=== PATIENT | female | born 1950 | race Caucasian/White ===

== ENCOUNTER 2020-06-29 02:42 | Inpatient (IN) | payer MEDICARE ==
[~2020-06-29] VITALS: Ht 170.2 cm; Wt 116.4 kg
[2020-06-29 03:18] LABS: BASO # 0.1 x10^3/uL (0.0-0.2); BASO % 1 % (0-3); EOS # 0.1 x10^3/uL (0.0-0.7); EOS % 1 % (0-3); HEMATOCRIT 33.5 % (36.0-47.0); HEMOGLOBIN 11.1 g/dL (12.0-15.5); LYMPH % 8 % (24-48); MEAN CORPUSCULAR HEMOGLOBIN 29 pg (25-35); MEAN CORPUSCULAR HGB CONC 33 g/dL (31-37); MEAN CORPUSCULAR VOLUME 89 fL (79-100); MONO # 0.8 x10^3/uL (0.0-1.1); MONO % 7 % (0-9); NEUT # 10.3 x10^3/uL (1.8-7.7); NEUT % 84 % (31-73); PLATELET COUNT 324 x10^3/uL (140-400); RED BLOOD COUNT 3.77 x10^6/uL (3.50-5.40); RED CELL DISTRIBUTION WIDTH 14.8 % (11.5-14.5); WHITE BLOOD COUNT 12.2 x10^3/uL (4.0-11.0)
--- NOTE | 2020-06-29 03:19 | RAD ---
EXAM: CHEST ONE VIEW. HISTORY: Shortness of breath. COMPARISON: 06/15/2004. FINDINGS: A frontal view of the chest is obtained. There are interstitial infiltrates in both bases. A small left pleural effusion is suspected. There i s no pneumothorax. The heart is not enlarged. There are atherosclerotic calcifications of the aorta. IMPRESSION: 1. Findings consistent with mild pulmonary edema versus atypical pneumonia. Electronically signed by: Juan Funes MD (06/29/2020 3:17 AM) [facility]
[2020-06-29 03:28] LABS: CALCIUM 8.7 mg/dL (8.5-10.1); CREATININE 0.8 mg/dL (0.6-1.0); GFR 70.7; POTASSIUM 3.9 mmol/L (3.5-5.1)
[2020-06-29] MEDS ORDERED: methylPREDNISolone SOD SUCC PF 125 MG/2 ML VIAL. IV ONE (03:30)
[2020-06-29 03:34] LABS: ALBUMIN 3.1 g/dL (3.4-5.0); ALBUMIN/GLOBULIN RATIO 0.8 (1.0-1.7); TOTAL BILIRUBIN 0.7 mg/dL (0.2-1.0); TOTAL PROTEIN 6.8 g/dL (6.4-8.2)
--- NOTE | 2020-06-29 04:16 | PHYS DOC ---
Past Medical History Past Medical History: CHF, COPD, High Cholesterol Additional Past Medical Histor: NEUROPATHY Past Surgical History: Other Additional Past Surgical Histo: UNKNOWN Smoking Status: Current Every Day Smoker Alcohol Use: None General Adult EDM: Chief Complaint: SHORTNESS OF BREATH HPI: HPI: Patient is a 70 year old female past medical history of copd hypertension hyperlipidemia presents with a chief complaint of shortness of breath. Patient states shortness of breath is been ongoing for 3 days progressively becoming worse. Patient has associate cough without sputum production. Patient states last 4 days she has had swelling in her lower extremities. She denies any fevers or chills. Patient lives at home. Family called 911. Upon ems arrival patient with oxygens saturations in the 70's on room air. Patient arrived to the ER on a non rebreather with O2 sat of 92%. EMS treated patient with a Duoneb. Review of Systems: Review of Systems: Review of systems: Constitutional symptoms- No fever, no chills. Eyes- No Discharge, No Visual Loss Respiratory symptoms- Positive shortness of breath, No wheezing, No Dyspnea on Exertion Cardiovascular Systems; No chest pain, No Palpitations, No syncope Gastrointestinal symptoms: NO abdominal pain, no nausea, no vomiting or diarrhea. Genitourinary symptoms: No dysuria. Musculoskeletal symptoms: No back pain No extremity pain. NEUROLOGICAL Symptoms: No headache, no generalized weakness; No focal Weakness Heart Score: Risk Factors: Risk Factors: DM, Current or recent (<one month) smoker, HTN, HLP, family history of CAD, obesity. Risk Scores: Score 0 - 3: 2.5% MACE over next 6 weeks - Discharge Home Score 4 - 6: 20.3% MACE over next 6 weeks - Admit for Clinical Observation Score 7 - 10: 72.7% MACE over next 6 weeks - Early Invasive Strategies Current Medications: Current Medications Medications (Trade) Dose Ordered Sig/Roby Start Time Stop Time Status Last Admin Dose Admin Azithromycin 250 ml @ 250 mls/hr 1X ONCE 06/29/20 04:30 06/29/20 05:29 Ceftriaxone Sodium (Rocephin) 1 gm 1X ONCE 06/29/20 04:30 06/29/20 04:31 Furosemide (Lasix) 40 mg 1X ONCE 06/29/20 04:30 06/29/20 04:31 Methylprednisolone Sodium Succinate (SOLU-Medrol 125MG VIAL) 125 mg 1X ONCE 06/29/20 03:30 06/29/20 03:31 DC 06/29/20 03:27 125 MG Allergies: Allergies: Allergies Coded Allergies Type Severity Reaction Last Updated Verified No Known Drug Allergies 06/29/20 No Physical Exam: PE: General: alert, no acute distress. Skin: warm, dry and intact. Head:: Normocephalic, atraumatic. Neck: Trachea midline. Eyes: EOMI, Normal conjunctiva, No drainage CARDIOVASCULAR: Tachycardia RESPIRATORY: Mild respiratory distress tachypneic no wheezing Back: Full range of motion. MUSCULOSKELETAL: Full range of motion of bilateral upper and lower extremities. GASTROINTESTINAL: Abdomen soft without rebound or guarding. NEUROLOGICAL: Alert and noted to person, place and time. No neurological deficits observed Psychiatric: Cooperative. Normal judgment Current Patient Data: Labs: Laboratory Tests Test 06/29/20 03:08 White Blood Count 12.2 x10^3/uL (4.0-11.0) H Red Blood Count 3.77 x10^6/uL (3.50-5.40) Hemoglobin 11.1 g/dL (12.0-15.5) L Hematocrit 33.5 % (36.0-47.0) L Mean Corpuscular Volume 89 fL (79-100) Mean Corpuscular Hemoglobin 29 pg (25-35) Mean Corpuscular Hemoglobin Concent 33 g/dL (31-37) Red Cell Distribution Width 14.8 % (11.5-14.5) H Platelet Count 324 x10^3/uL (140-400) Neutrophils (%) (Auto) 84 % (31-73) H Lymphocytes (%) (Auto) 8 % (24-48) L Monocytes (%) (Auto) 7 % (0-9) Eosinophils (%) (Auto) 1 % (0-3) Basophils (%) (Auto) 1 % (0-3) Neutrophils # (Auto) 10.3 x10^3/uL (1.8-7.7) H Lymphocytes # (Auto) 1.0 x10^3/uL (1.0-4.8) Monocytes # (Auto) 0.8 x10^3/uL (0.0-1.1) Eosinophils # (Auto) 0.1 x10^3/uL (0.0-0.7) Basophils # (Auto) 0.1 x10^3/uL (0.0-0.2) Sodium Level 141 mmol/L (136-145) Potassium Level 3.9 mmol/L (3.5-5.1) Chloride Level 104 mmol/L (98-107) Carbon Dioxide Level 29 mmol/L (21-32) Anion Gap 8 (6-14) Blood Urea Nitrogen 19 mg/dL (7-20) Creatinine 0.8 mg/dL (0.6-1.0) Estimated GFR (Cockcroft-Gault) 70.7 BUN/Creatinine Ratio 24 (6-20) H Glucose Level 171 mg/dL (70-99) H Lactic Acid Level 1.4 mmol/L (0.4-2.0) Calcium Level 8.7 mg/dL (8.5-10.1) Total Bilirubin 0.7 mg/dL (0.2-1.0) Aspartate Amino Transferase (AST) 35 U/L (15-37) Alanine Aminotransferase (ALT) 32 U/L (14-59) Alkaline Phosphatase 105 U/L (46-116) Troponin I Quantitative 0.033 ng/mL (0.000-0.055) TP-Fgb-O-Type Natriuretic Peptide 3872 pg/mL (0-124) H Total Protein 6.8 g/dL (6.4-8.2) Albumin 3.1 g/dL (3.4-5.0) L Albumin/Globulin Ratio 0.8 (1.0-1.7) L Laboratory Tests 06/29/20 03:08 Laboratory Tests 06/29/20 03:08 Vital Signs: Vital Signs Date Time Temp Pulse Resp B/P (MAP) Pulse Ox O2 Delivery O2 Flow Rate FiO2 06/29/20 03:02 98.9 108 24 231/94 (139) 92 NonRebreather Mask 10.0 98.9 EKG: EKG: EKG performed at 025 5 hours heart rate [address] elevation no ST depression no acute ME [] Radiology/Procedures: Radiology/Procedures: [] Impression: There are interstitial infiltrates in both bases. A small left pleural effusion is suspected. There is no pneumothorax. The heart is not enlarged. There are atherosclerotic calcifications of the aorta. IMPRESSION: 1. Findings consistent with mild pulmonary edema versus atypical pneumonia. Course & Med Decision Making: Course & Med Decision Making Pertinent Labs and Imaging studies reviewed. (See chart for details) [] Patient was evaluated for chief complaint. Work-up consisted of laboratory analysis radiologic imaging and EKG. Results reviewed and discussed with len irving. Chest x-ray per radiologist pulmonary edema versus atypical infection. Patient's BNP noted to be greater than 3000. Treatment included solumedrol RocephinZithromax AND Lasix. Patient admitted to the hospitalist for further evaluation and treatment. Gilberto Disclaimer: Gilberto Disclaimer: This electronic medical record was generated, in whole or in part, using a voice recognition dictation system. Departure Departure Impression: Primary Impression: Person under investigation for COVID-19 Additional Impressions: Dyspnea Elevated brain natriuretic peptide (BNP) level CHF (congestive heart failure) Disposition: 09 ADMITTED INPT THIS HOSP Admitting Physician: ADRI Condition: STABLE ELLIOTT YOUNGER I DO Jun 29, 2020 04:16
[2020-06-29] MEDS ORDERED: cefTRIAXone IV Push 1 GM VIAL. IVP ONE (04:30)
[2020-06-29] MEDS ORDERED: FUROSEMIDE 40 MG/4 ML VIAL. IVP ONE (04:30)
[2020-06-29] MEDS ORDERED: AZITHRMYCN 500MG IVPB FOR OMNI 250 ML IV ONE (04:30)
--- NOTE | 2020-06-29 04:35 | EKG ---
[address] [place] [address] Test Date: 2020-06-29 Test Time: 02:55:25 Pat Name: ADRIANA YUAN Department: Room: Gender: F [employer]: : [id number] Requested By: ELLIOTT YOUNGER Order Number: [id number] Reading MD: Measurements Intervals Elberta Rate: 103 P: 54 NV: 176 QRS: 17 QRSD: 90 T: 110 QT: 350 QTc: 461 Interpretive Statements SINUS TACHYCARDIA T ABNORMALITY IN HIGH LATERAL LEADS ABNORMAL ECG RI6.02 No previous ECG available for comparison
[2020-06-29 11:00] VITALS: BP 154/81
[2020-06-29] MEDS: GABAPENTIN 300 MG CAPSULE. PO SCH ×2 (14:23→21:08)
[2020-06-29] MEDS: LISINOPRIL 20 MG TABLET PO SCH (14:24)
[2020-06-29 15:00] VITALS: BP 154/79
[2020-06-29 19:00] VITALS: BP 142/70
[2020-06-29] MEDS: ATORVASTATIN CALCIUM 10 MG TABLET. PO SCH (21:08)
[2020-06-29] MEDS: AMITRIPTYLINE HCL 10 MG TABLET. PO SCH (21:08)
[2020-06-29] MEDS ORDERED: TEMAZEPAM 15 MG CAPSULE PO PRN (22:00)
[2020-06-29] MEDS: guaiFENesin/CODEINE 100mg/10mg 5 ML LIQUID PO PRN (22:14)
[2020-06-29] MEDS: ALBUTEROL SULFATE 8GM INHALER. INH PRN (22:14)
[2020-06-29 23:00] VITALS: BP 153/82
[2020-06-30 03:00] VITALS: BP 147/91
[2020-06-30 07:00] VITALS: BP 144/89
[2020-06-30] MEDS: GABAPENTIN 300 MG CAPSULE. PO SCH ×3 (09:37→21:33)
[2020-06-30] MEDS: LISINOPRIL 20 MG TABLET PO SCH (09:38)
[2020-06-30] MEDS: ALBUTEROL SULFATE 8GM INHALER. INH PRN (09:39)
[2020-06-30] MEDS: guaiFENesin/CODEINE 100mg/10mg 5 ML LIQUID PO PRN ×3 (09:45→21:34)
[2020-06-30 11:00] VITALS: BP 147/86
[2020-06-30] MEDS ORDERED: AZITHROMYCIN 250 MG TABLET. PO ONE (14:30)
--- NOTE | 2020-06-30 14:45 | NUR ---
MICHELLE following for discharge planning. Spoke with RN and reviewed chart. Pt currently on 4 02, cardiac diet, IV Rocephin. Pt admitted with difficulty breathing. Pt from home. Pt self-pay and Kendrick is following. MICHELLE following. Addendum: 07/01/20 at 1217 by JT MARTINEZ Pt was listed as self-pay on admission. Pt has [employer] Medicare.
[2020-06-30 15:00] VITALS: BP 131/59
[2020-06-30] MEDS ORDERED: DEXAMETHASONE SOD PHOS 4 MG/ML VIAL IVP ONE (15:00)
[2020-06-30] MEDS: ASCORBIC ACID 500 MG TABLET PO SCH (15:20)
[2020-06-30] MEDS: ZINC SULFATE 220 MG CAPSULE. PO SCH (15:20)
--- NOTE | 2020-06-30 15:20 | PDOC1 ---
History and Physical Date of Admission Date of Admission DATE: 06/30/20 TIME: 15:20 Source Source: Chart review, Patient History of Present Illness History of Present Illness Ms. Dillard, is a 70 year old female admit with cough and dyspnea. . Patient states shortness of breath had been ongoing for 3 days progressively becoming worse over time. she feels much better with the supplemental oxygen provided. sheha sbeen cough, without sputum, and slight edema that was new for her, she feels improved since being seen in the ER. she was hypoxic in the field and here, she is using an MDI and says that helps Past Medical History Cardiovascular: HTN, Hyperlipidemia Pulmonary: COPD GI: No pertinent hx Musculoskeletal: low back pain ENT: No pertinent hx Renal/: No pertinent hx Family History Family History: No Significant Social History Smoke: Quit ALCOHOL: none Drugs: None Current Problem List Problem List Problems Medical Problems: (1) CHF (congestive heart failure) Status: Acute (2) Dyspnea Status: Acute (3) Elevated brain natriuretic peptide (BNP) level Status: Acute (4) Person under investigation for COVID-19 Status: Acute Current Medications Current Medications Current Medications Methylprednisolone Sodium Succinate (SOLU-Medrol 125MG VIAL) 125 mg 1X ONCE IV Last administered on 06/29/20at 03:27; Start 06/29/20 at 03:30; Stop 06/29/20 at 03:31; Status DC Furosemide (Lasix) 40 mg 1X ONCE IVP Last administered on 06/29/20at 04:47; Start 06/29/20 at 04:30; Stop 06/29/20 at 04:31; Status DC Ceftriaxone Sodium (Rocephin) 1 gm 1X ONCE IVP Last administered on 06/29/20at 04:47; Start 06/29/20 at 04:30; Stop 06/29/20 at 04:31; Status DC Azithromycin 250 ml @ 250 mls/hr 1X ONCE IV Last administered on 06/29/20at 04:48; Start 06/29/20 at 04:30; Stop 06/29/20 at 05:29; Status DC Gabapentin (Neurontin) 300 mg TID PO Last administered on 06/30/20at 14:10; Start 06/29/20 at 14:00 Atorvastatin Calcium (Lipitor) 10 mg QHS PO Last administered on 06/29/20at 21:08; Start 06/29/20 at 21:00 Lisinopril (Prinivil) 40 mg DAILY PO Last administered on 06/30/20at 09:38; Start 06/29/20 at 14:00 Diltiazem HCl (Cardizem 24hr Cd) 120 mg DAILY PO Last administered on 06/30/20at 09:37; Start 06/29/20 at 14:00 Amitriptyline HCl (Elavil) 10 mg QHS PO Last administered on 06/29/20at 21:08; Start 06/29/20 at 21:00 Guaifenesin/ Codeine Phosphate (Robitussin Ac) 5 ml PRN Q4HRS PRN PO COUGH Last administered on 06/30/20at 14:10; Start 06/29/20 at 22:00; Stop 06/30/20 at 14:18; Status DC Temazepam (Restoril) 15 mg PRN QHS PRN PO INSOMNIA Last administered on 06/29/20at 22:14; Start 06/29/20 at 22:00 Albuterol Sulfate (Ventolin Hfa) 2 puff PRN Q6HRS PRN INH SHORTNESS OF BREATH Last administered on 06/30/20at 09:39; Start 06/29/20 at 22:00 Enoxaparin Sodium (Lovenox Per Pharmacy Prophylaxis Dosing) 1 each PRN DAILY PRN MC SEE COMMENTS; Start 06/30/20 at 14:00 Azithromycin (Zithromax) 500 mg 1X ONCE PO Last administered on 06/30/20at 14:10; Start 06/30/20 at 14:30; Stop 06/30/20 at 14:31; Status DC Azithromycin (Zithromax) 250 mg DAILY PO ; Start 07/01/20 at 09:00 Enoxaparin Sodium (Lovenox 40mg Syringe) 40 mg Q24H SQ ; Start 06/30/20 at 21:00 Ceftriaxone Sodium (Rocephin) 1 gm Q24H IVP ; Start 06/30/20 at 15:00 Dexamethasone Sodium Phosphate (Decadron) 6 mg 1X ONCE IVP ; Start 06/30/20 at 15:00; Stop 06/30/20 at 15:01; Status DC Prednisone (Prednisone) 40 mg DAILY PO ; Start 07/01/20 at 09:00 Benzonatate (Tessalon Perle) 100 mg [id number] PO ; Start 06/30/20 at 21:00 Guaifenesin/ Codeine Phosphate (Robitussin Ac) 5 ml PRN Q6HRS PRN PO COUGH; Start 06/30/20 at 14:15 Zinc Sulfate (Orazinc) 220 mg DAILY PO ; Start 06/30/20 at 15:00 Ascorbic Acid (Vitamin C) 500 mg DAILY PO ; Start 06/30/20 at 14:30 Allergies Allergies: Coded Allergies: No Known Drug Allergies (Unverified , 06/29/20) ROS General: YES: Fatigue, Malaise; No: Night Sweats, Appetite, Other PSYCHOLOGICAL ROS: No: Anxiety, Behavioral Disorder, Concentration difficultie, Decreased libido, Depression, Disorientation, Hallucinations, Hostility, Irritablity, Memory difficulties, Mood Swings, Obsessive thoughts, Other Eyes: No Blurry vision, No Decreased vision, No Double vision, No Dry eyes, No Excessive tearing, No Eye Pain, No Itchy Eyes, No Loss of vision, No Photophobia, No Scotomata, No Uses contacts, No Uses glasses, No Other HEENT: YES: Heacaches; No: Visual Changes, Hearing change, Nasal congestion, Nasal discharge, Oral lesions, Sinus pain, Sore Throat, Epistaxis, Sneezing, Snoring, Tinnitus, Vertigo, Vocal changes, Other Respiratory: YES: Cough, Shortness of breath, SOB with excertion, Sputum Changes, Tachypnea Cardiovascular: No Chest Pain, No Palpitations, No Orthopnea, No Paroxysmal Noc. Dyspnea, No Edema, No Lt Headedness, No Other Gastrointestinal: Yes Nausea; No Vomiting, No Abdominal Pain, No Diarrhea, No Constipation, No Melena, No Hematochezia, No Other Genitourinary: No Dysuria, No Frequency, No Incontinence, No Hematuria, No R etention, No Discharge, No Urgency, No Pain, No Flank Pain, No Other, No , No , No , No , No , No , No Musculoskeletal: No Gait Disturbance, No Joint Pain, No Joint Stiffness, No Joint Swelling, No Muscle Pain, No Muscular Weakness, No Pain In:, No Swelling In:, No Other Neurological: No Behavorial Changes, No Bowel/Bladder ControlChng, No Confusion, No Dizziness, No Gait Disturbance, No Headaches, No Impaired Coord/balance, No Memory Loss, No Numbness/Tingling, No Seizures, No Speech Problems, No Tremors, No Visual Changes, No Weakness, No Other Skin: Yes Dry Skin; No Eczema, No Hair Changes, No Lumps, No Mole Changes, No Mottling, No Nail Changes, No Pruritus, No Rash, No Skin Lesion Changes, No Other, No Acne Physical Exam General: Alert, Cooperative, mild distress, moderate distress HEENT: Atraumatic, EOMI Lungs: Normal air movement, Other (rales, end wheeze, good effort, ) Heart: S1S2, no gallops, no murmurs Abdomen: Normal bowel sounds, Soft Rectal Exam: not examined Extremities: No clubbing, No edema, Normal pulses Skin: No breakdown Neuro: Normal speech, Normal tone, Sensation intact Psych/Mental Status: Mental status NL, Mood NL Vitals Vitals Vital Signs Date Time Temp Pulse Resp B/P (MAP) Pulse Ox O2 Delivery O2 Flow Rate FiO2 06/30/20 15:00 98.0 76 22 131/59 (83) 94 Nasal Cannula 4.0 98.0 Labs Labs Laboratory Tests Test 06/29/20 03:08 06/29/20 03:45 White Blood Count 12.2 x10^3/uL (4.0-11.0) Red Blood Count 3.77 x10^6/uL (3.50-5.40) Hemoglobin 11.1 g/dL (12.0-15.5) Hematocrit 33.5 % (36.0-47.0) Mean Corpuscular Volume 89 fL (79-100) Mean Corpuscular Hemoglobin 29 pg (25-35) Mean Corpuscular Hemoglobin Concent 33 g/dL (31-37) Red Cell Distribution Width 14.8 % (11.5-14.5) Platelet Count 324 x10^3/uL (140-400) Neutrophils (%) (Auto) 84 % (31-73) Lymphocytes (%) (Auto) 8 % (24-48) Monocytes (%) (Auto) 7 % (0-9) Eosinophils (%) (Auto) 1 % (0-3) Basophils (%) (Auto) 1 % (0-3) Neutrophils # (Auto) 10.3 x10^3/uL (1.8-7.7) Lymphocytes # (Auto) 1.0 x10^3/uL (1.0-4.8) Monocytes # (Auto) 0.8 x10^3/uL (0.0-1.1) Eosinophils # (Auto) 0.1 x10^3/uL (0.0-0.7) Basophils # (Auto) 0.1 x10^3/uL (0.0-0.2) Sodium Level 141 mmol/L (136-145) Potassium Level 3.9 mmol/L (3.5-5.1) Chloride Level 104 mmol/L (98-107) Carbon Dioxide Level 29 mmol/L (21-32) Anion Gap 8 (6-14) Blood Urea Nitrogen 19 mg/dL (7-20) Creatinine 0.8 mg/dL (0.6-1.0) Estimated GFR (Cockcroft-Gault) 70.7 BUN/Creatinine Ratio 24 (6-20) Glucose Level 171 mg/dL (70-99) Lactic Acid Level 1.4 mmol/L (0.4-2.0) Calcium Level 8.7 mg/dL (8.5-10.1) Total Bilirubin 0.7 mg/dL (0.2-1.0) Aspartate Amino Transf (AST/SGOT) 35 U/L (15-37) Alanine Aminotransferase (ALT/SGPT) 32 U/L (14-59) Alkaline Phosphatase 105 U/L (46-116) Troponin I Quantitative 0.033 ng/mL (0.000-0.055) GH-Dyb-L-Type Natriuretic Peptide 3872 pg/mL (0-124) Total Protein 6.8 g/dL (6.4-8.2) Albumin 3.1 g/dL (3.4-5.0) Albumin/Globulin Ratio 0.8 (1.0-1.7) Coronavirus (PCR) Not detected (Not Detected) VTE Prophylaxis Ordered VTE Prophylaxis Devices: No VTE Pharmacological Prophylaxi: Yes Assessment/Plan Assessment/Plan sepsis, pneumonia acute hypoxia, admit to r/o COVId -19, will give vitamins, minerals, support, oxygen, anti-tussives. COPD, possible AE obese, BMI 38 hyperlipids hypertension Justifications for Admission Other Justification PATRICK LAUREANO MD Jun 30, 2020 15:20
[2020-06-30] MEDS: cefTRIAXone IV Push 1 GM VIAL. IVP SCH (15:22)
[2020-06-30 19:00] VITALS: BP 148/85
[2020-06-30] MEDS: ALBUTEROL SULFATE 2.5 MG/3 ML NEBU. NEB SCH (20:42)
[2020-06-30] MEDS: AMITRIPTYLINE HCL 10 MG TABLET. PO SCH (21:33)
[2020-06-30] MEDS: BENZONATATE 100 MG CAPSULE. PO SCH (21:33)
[2020-06-30] MEDS: ATORVASTATIN CALCIUM 10 MG TABLET. PO SCH (21:34)
[2020-06-30] MEDS: ENOXAPARIN 40 MG/0.4 ML SYRINGE. SQ SCH (21:34)
[2020-06-30 23:00] VITALS: BP 152/80
[2020-07-01 02:40] VITALS: BP 150/74
[2020-07-01] MEDS ORDERED: ALBUTEROL SULFATE 2.5 MG/3 ML NEBU. NEB PRN (03:15)
[2020-07-01] MEDS ORDERED: FUROSEMIDE 40 MG/4 ML VIAL. IVP ONE ×2 (03:30→11:00)
[2020-07-01 07:00] VITALS: BP 166/82
[2020-07-01] MEDS: ALBUTEROL SULFATE 2.5 MG/3 ML NEBU. NEB SCH ×4 (07:20→21:21)
[2020-07-01] MEDS: ZINC SULFATE 220 MG CAPSULE. PO SCH (08:59)
[2020-07-01] MEDS: LISINOPRIL 20 MG TABLET PO SCH (09:00)
[2020-07-01] MEDS ORDERED: predniSONE 20 MG TABLET PO SCH (09:00)
[2020-07-01] MEDS: AZITHROMYCIN 250 MG TABLET. PO SCH (09:01)
[2020-07-01] MEDS: ASCORBIC ACID 500 MG TABLET PO SCH (09:01)
[2020-07-01] MEDS: GABAPENTIN 300 MG CAPSULE. PO SCH ×3 (09:01→22:08)
[2020-07-01] MEDS: BENZONATATE 100 MG CAPSULE. PO SCH (09:01)
--- NOTE | 2020-07-01 10:10 | PDOC2 ---
ABUNDIO RON PLASTERER ROUGH 07/01/20 1010: CARDIAC CONSULT DATE OF CONSULT Date of Consult DATE: 07/01/20 TIME: 10:04 REASON FOR CONSULT Reason for Consult: CHF REFERRING PHYSICIAN Referring Physician: Dr. Cid SOURCE Source: Chart review, Patient HISTORY OF PRESENT ILLNESS HISTORY OF PRESENT ILLNESS This is 70 yo female who presented secondary to shortness of breath and LE edema. Patient reports she has been short of breath for the last couple of weeks. Has worsening in the last week. Developed bilateral LE edema as well. Aaron any chest pain, palpitations, dizziness, diaphoresis, or nausea/vomiting. Has a history of CHF, but does not follow with creative coordinator. PAST MEDICAL HISTORY Cardiovascular: CHF, HTN, Hyperlipidemia Pulmonary: COPD CENTRAL NERVOUS SYSTEM: Periperal neuropathy PAST SURGICAL HISTORY Past Surgical History: No pertinent history FAMILY HISTORY Family History: Heart Disease SOCIAL HISTORY Smoke: <1 pack per day ALCOHOL: none Drugs: None Lives: with Family CURRENT MEDICATIONS CURRENT MEDICATIONS Current Medications Medications (Trade) Dose Ordered Sig/Roby Route PRN Reason Start Time Stop Time Status Last Admin Dose Admin Azithromycin (Zithromax) 500 mg 1X ONCE PO 06/30/20 14:30 06/30/20 14:31 DC 06/30/20 14:10 Azithromycin (Zithromax) 250 mg DAILY PO 07/01/20 09:00 07/01/20 09:01 Enoxaparin Sodium (Lovenox 40mg Syringe) 40 mg Q24H SQ 06/30/20 21:00 06/30/20 21:34 Ceftriaxone Sodium (Rocephin) 1 gm Q24H IVP 06/30/20 15:00 06/30/20 15:22 Dexamethasone Sodium Phosphate (Decadron) 6 mg 1X ONCE IVP 06/30/20 15:00 06/30/20 15:01 DC 06/30/20 15:20 Prednisone (Prednisone) 40 mg DAILY PO 07/01/20 09:00 07/01/20 09:01 Benzonatate (Tessalon Perle) 100 mg [id number] PO 06/30/20 21:00 07/01/20 09:01 Guaifenesin/ Codeine Phosphate (Robitussin Ac) 5 ml PRN Q6HRS PRN PO COUGH 06/30/20 14:15 06/30/20 21:34 Zinc Sulfate (Orazinc) 220 mg DAILY PO 06/30/20 15:00 07/01/20 08:59 Ascorbic Acid (Vitamin C) 500 mg DAILY PO 06/30/20 14:30 07/01/20 09:01 Albuterol Sulfate (Ventolin Neb Soln) 2.5 mg RTQID NEB 06/30/20 20:45 07/01/20 07:20 Albuterol Sulfate (Ventolin Neb Soln) 2.5 mg PRN Q4HRS PRN NEB SHORTNESS OF BREATH 07/01/20 03:15 07/01/20 03:15 Lorazepam (Ativan Inj) 1 mg PRN Q6HRS PRN IVP ANXIETY / AGITATION 07/01/20 03:15 07/01/20 03:24 Furosemide (Lasix) 40 mg 1X ONCE IVP 07/01/20 03:30 07/01/20 03:31 DC 07/01/20 03:25 ALLERGIES ALLERGIES: Coded Allergies: No Known Drug Allergies (Unverified , 06/29/20) ROS Review of System 14 point ROS conducted with pertinent positives noted above in HPI PHYSICAL EXAM General: Alert, Oriented X3, Cooperative, No acute distress HEENT: Atraumatic Lungs: Other (diminished bases) Heart: Regular rate Abdomen: Soft, No tenderness Extremities: Normal pulses, Other (1+ bilateral LE edema ) Skin: No significant lesion Neuro: Normal speech, Sensation intact Psych/Mental Status: Mental status NL, Mood NL MUSCULOSKELETAL: Osteoarthritic changes both hands VITALS/I&O VITALS/I&O: Vital Signs Date Time Temp Pulse Resp B/P (MAP) Pulse Ox O2 Delivery O2 Flow Rate FiO2 07/01/20 09:00 80 166/82 07/01/20 07:20 97 Venturi Mask 9.0 07/01/20 07:00 97.3 20 97.3 I & O 06/30/20 06/30/20 07/01/20 15:00 23:00 07:00 Intake Total 740 ml 240 ml Output Total 1600 ml Balance 740 ml 240 ml -1600 ml ASSESSMENT/PLAN ASSESSMENT/PLAN 1. Acute respiratory failure secondary to a/c CHF 2. Acute on chronic probable diastolic CHF 3. Accelerated hypertension 4. Hyperlipidemia; statin 5. COPD with ongoing tobaccoism; discussed/encouraged cessation 6. PUI; COVID negative Recommendations Echo to assess LV systolic function Mild diuresis with monitoring of labs Monitor BP and titrate therapy as warranted following diuresis Consider outpatient ischemic evaluation given risk factors. Further pending above FRANCES LOTT MD 07/01/20 1715: CARDIAC CONSULT ASSESSMENT/PLAN ASSESSMENT/PLAN Patient seen and evaluated I agree with our nurse practitioners assessment and plan as above. Acute respiratory failure. In combination of COPD and probable heart failure. Will mildly diurese and monitor lab. We will check an echocardiogram today. Probable outpatient ischemic evaluation. Accelerated hypertension. Improving on present treatment. Continue medications and monitor. COPD. Patient continues to smoke. Continue present medications. Pulmonary consultation. PUI. Covid testing negative. Thank you for allowing us to participate in the care of your patient. ABUNDIO RON APRN Jul 01, 2020 10:10 FRANCES LOTT MD Jul 01, 2020 17:15
--- NOTE | 2020-07-01 10:34 | CONS ---
DATE OF CONSULTATION: PULMONARY CONSULTATION ATTENDING PHYSICIAN: Matthew Serrato MD. REASON FOR CONSULTATION: Dyspnea, abnormal chest x-ray. HISTORY OF PRESENT ILLNESS: The patient is a 70-year-old obese female with a BMI of 39.7. The patient has smoked for at least 35-40 years and still smokes cigarettes. The patient was brought into the hospital with increasing dyspnea. She has no cough, no chest pain. She does have lower extremity edema. I have reviewed her chest x-ray that was consistent with CHF with bilateral interstitial infiltrates. There is no old x-ray available for comparison. No headaches, no nausea or vomiting, no diarrhea, no dysuria. No focal weakness. Consultation requested for further evaluation and management. PAST MEDICAL HISTORY: CHF, unknown EF, history of hypertension, hyperlipidemia, suspected COPD, could be severe. History of peripheral neuropathy and underlying obesity. PAST SURGICAL HISTORY: None. ALLERGIES: None. MEDICATIONS: Reviewed as listed in the MRAD. The patient is on prednisone, antibiotics and she received Lasix in the ER. REVIEW OF SYSTEMS: Twelve-point system obtained. Pertinent positives discussed in my history of present illness, otherwise noncontributory. All systems that were negative were reviewed as well. SOCIAL HISTORY: Smoked for about 40 years and still smokes cigarettes. FAMILY HISTORY: Noncontributory to lungs. PHYSICAL EXAMINATION: VITAL SIGNS: Reviewed. She is currently down to 4 liters of oxygen. Blood pressure 166/82. Pulse ox 97%. NECK: Supple. LUNGS: With diminished breath sounds. CARDIOVASCULAR: With a regular rate. ABDOMEN: Soft, obese. EXTREMITIES: With 2+ pitting edema. LABORATORY DATA: Reviewed. Her COVID test is negative. BUN 19, creatinine 0.8. ProBNP is 3872. White cell count 12.2. IMPRESSION: 1. Acute hypoxic respiratory failure, likely secondary to congestive heart failure. This is a patient who also has 40 years of tobacco use and underlying chronic obstructive pulmonary disease would be another contributing factor. 2. Abnormal chest x-ray with bilateral diffuse interstitial infiltrates favoring congestive heart failure. 3. 40 years of tobacco use, suspect underlying chronic obstructive pulmonary disease. 4. Underlying obesity. Need to rule out obstructive sleep apnea. RECOMMENDATIONS: 1. We will continue aggressive diuresis. 2. Wean oxygen to keep saturation 92 and above. 3. Follow up chest x-ray post-diuresis. 4. PFTs as an outpatient. 5. Smoking cessation counseling provided. 6. Obtain echocardiogram. 7. Likely discharge in the next 24 hours[address] Cid. MARYANNE NEAL MD DR: DARRIAN/kerry JOB#: [id number] / [id number]
[2020-07-01 11:00] VITALS: BP 143/80
--- NOTE | 2020-07-01 12:17 | NUR ---
SW following for discharge planning. Spoke with RN and reviewed chart. Pt remains on IV Rocephin. Pt now requiring a ventimask. Pt not ready for discharge. SW following.
--- NOTE | 2020-07-01 14:07 | PDOC ---
PROGRESS NOTES Date of Service: DATE: 07/01/20 TIME: 14:04 Chief Complaint Chief Complaint acute hypoxia, negative for COVID -19, Acute systolic CHF, COPD, possible AE obese, BMI 38 hyperlipids hypertension History of Present Illness History of Present Illness feels better, still hypoxic wean off 02, taper steroids, stop COVID protocol CV and PULM consulted Vitals Vitals Vital Signs Date Time Temp Pulse Resp B/P (MAP) Pulse Ox O2 Delivery O2 Flow Rate FiO2 07/01/20 11:28 96 Venturi Mask 3.0 07/01/20 11:00 97.7 52 20 143/80 (101) 97.7 Physical Exam General: Alert, Cooperative, mild distress, moderate distress Abdomen: Normal bowel sounds, Soft Extremities: No clubbing, No edema, Normal pulses Skin: No breakdown Assessment and Plan Assessmemt and Plan Problems Medical Problems: (1) CHF (congestive heart failure) Status: Acute (2) Dyspnea Status: Acute (3) Elevated brain natriuretic peptide (BNP) level Status: Acute (4) Person under investigation for COVID-19 Status: Acute Comment Review of Relevant I have reviewed the following items grayson (where applicable) has been applied. Medications Current Medications Methylprednisolone Sodium Succinate (SOLU-Medrol 125MG VIAL) 125 mg 1X ONCE IV Last administered on 06/29/20at 03:27; Start 06/29/20 at 03:30; Stop 06/29/20 at 03:31; Status DC Furosemide (Lasix) 40 mg 1X ONCE IVP Last administered on 06/29/20at 04:47; Start 06/29/20 at 04:30; Stop 06/29/20 at 04:31; Status DC Ceftriaxone Sodium (Rocephin) 1 gm 1X ONCE IVP Last administered on 06/29/20at 04:47; Start 06/29/20 at 04:30; Stop 06/29/20 at 04:31; Status DC Azithromycin 250 ml @ 250 mls/hr 1X ONCE IV Last administered on 06/29/20at 04:48; Start 06/29/20 at 04:30; Stop 06/29/20 at 05:29; Status DC Gabapentin (Neurontin) 300 mg TID PO Last administered on 07/01/20at 09:01; Start 06/29/20 at 14:00 Atorvastatin Calcium (Lipitor) 10 mg QHS PO Last administered on 06/30/20 21:34; Start 06/29/20 at 21:00 Lisinopril (Prinivil) 40 mg DAILY PO Last administered on 07/01/20at 09:00; Start 06/29/20 at 14:00 Diltiazem HCl (Cardizem 24hr Cd) 120 mg DAILY PO Last administered on 07/01/20at 09:00; Start 06/29/20 at 14:00 Amitriptyline HCl (Elavil) 10 mg QHS PO Last administered on 06/30/20at 21:33; Start 06/29/20 at 21:00 Guaifenesin/ Codeine Phosphate (Robitussin Ac) 5 ml PRN Q4HRS PRN PO COUGH Last administered on 06/30/20 14:10; Start 06/29/20 at 22:00; Stop 06/30/20 at 14:18; Status DC Temazepam (Restoril) 15 mg PRN QHS PRN PO INSOMNIA Last administered on 06/29/20at 22:14; Start 06/29/20 at 22:00 Albuterol Sulfate (Ventolin Hfa) 2 puff PRN Q6HRS PRN INH SHORTNESS OF BREATH Last administered on 06/30/20 09:39; Start 06/29/20 at 22:00; Stop 07/01/20 at 03:18; Status DC Enoxaparin Sodium (Lovenox Per Pharmacy Prophylaxis Dosing) 1 each PRN DAILY PRN MC SEE COMMENTS; Start 06/30/20 at 14:00 Azithromycin (Zithromax) 500 mg 1X ONCE PO Last administered on 06/30/20at 14:10; Start 06/30/20 at 14:30; Stop 06/30/20 at 14:31; Status DC Azithromycin (Zithromax) 250 mg DAILY PO Last administered on 07/01/20at 09:01; Start 07/01/20 at 09:00 Enoxaparin Sodium (Lovenox 40mg Syringe) 40 mg Q24H SQ Last administered on 06/30/20at 21:34; Start 06/30/20 at 21:00 Ceftriaxone Sodium (Rocephin) 1 gm Q24H IVP Last administered on 06/30/20at 15:22; Start 06/30/20 at 15:00 Dexamethasone Sodium Phosphate (Decadron) 6 mg 1X ONCE IVP Last administered on 06/30/20at 15:20; Start 06/30/20 at 15:00; Stop 06/30/20 at 15:01; Status DC Prednisone (Prednisone) 40 mg DAILY PO Last administered on 07/01/20at 09:01; Start 07/01/20 at 09:00 Benzonatate (Tessalon Perle) 100 mg [id number] PO Last administered on 07/01/20at 09:01; Start 06/30/20 at 21:00 Guaifenesin/ Codeine Phosphate (Robitussin Ac) 5 ml PRN Q6HRS PRN PO COUGH Last administered on 06/30/20at 21:34; Start 06/30/20 at 14:15 Zinc Sulfate (Orazinc) 220 mg DAILY PO Last administered on 07/01/20at 08:59; Start 06/30/20 at 15:00 Ascorbic Acid (Vitamin C) 500 mg DAILY PO Last administered on 07/01/20at 09:01; Start 06/30/20 at 14:30 Albuterol Sulfate (Ventolin Neb Soln) 2.5 mg RTQID NEB Last administered on 07/01/20at 11:26; Start 06/30/20 at 20:45 Albuterol Sulfate (Ventolin Neb Soln) 2.5 mg PRN Q4HRS PRN NEB SHORTNESS OF BREATH Last administered on 07/01/20at 03:15; Start 07/01/20 at 03:15 Lorazepam (Ativan Inj) 1 mg PRN Q6HRS PRN IVP ANXIETY / AGITATION Last administered on 07/01/20at 03:24; Start 07/01/20 at 03:15 Furosemide (Lasix) 40 mg 1X ONCE IVP Last administered on 07/01/20at 03:25; Start 07/01/20 at 03:30; Stop 07/01/20 at 03:31; Status DC Furosemide (Lasix) 40 mg 1X ONCE IVP Last administered on 07/01/20at 11:38; Start 07/01/20 at 11:00; Stop 07/01/20 at 11:01; Status DC Vitals/I & O Vital Sign - Last 24 Hours 06/30/20 06/30/20 06/30/20 06/30/20 15:00 19:00 20:00 20:47 Temp 98.0 97.8 98.0 97.8 Pulse 76 83 Resp 22 18 B/P (MAP) 131/59 (83) 148/85 (106) Pulse Ox 94 93 92 O2 Delivery Nasal Cannula Nasal Cannula Nasal Cannula Nasal Cannula O2 Flow Rate 4.0 4.0 4.0 4.0 06/30/20 07/01/20 07/01/20 07/01/20 23:00 02:40 03:15 07:00 Temp 97.7 97.7 97.3 97.7 97.7 97.3 Pulse 82 80 80 Resp 18 18 20 B/P (MAP) 152/80 (104) 150/74 (99) 166/82 (110) Pulse Ox 93 94 96 97 O2 Delivery Nasal Cannula Nasal Cannula Simple Mask Venturi Mask O2 Flow Rate 4.0 4.0 5.0 10.0 07/01/20 07/01/20 07/01/20 07/01/20 07:20 08:00 09:00 09:00 Pulse 80 80 B/P (MAP) 166/82 166/82 Pulse Ox 97 O2 Delivery Venturi Mask Nasal Cannula O2 Flow Rate 9.0 4.0 07/01/20 07/01/20 11:00 11:28 Temp 97.7 97.7 Pulse 52 Resp 20 B/P (MAP) 143/80 (101) Pulse Ox 96 96 O2 Delivery Venturi Mask Venturi Mask O2 Flow Rate 3.0 3.0 Intake and Output 06/30/20 06/30/20 07/01/20 15:00 23:00 07:00 Intake Total 740 ml 240 ml Output Total 1600 ml Balance 740 ml 240 ml -1600 ml Justicifation of Admission Dx: Justifications for Admission: Justification of Admission Dx: Yes (hypoxia) PATRICK LAUREANO MD Jul 01, 2020 14:07
[2020-07-01] MEDS ORDERED: BENZONATATE 100 MG CAPSULE. PO PRN (14:15)
--- NOTE | 2020-07-01 14:20 | CARD ---
MR#: [id number] Date of Study: 07/01/2020 Ordering Physician: ABUNDIO RON, Referring Physician: ABUNDIO RON, Tech: Tonya Cid [facility] APPROVED REPORT EXAM: Two-dimensional and M-mode echocardiogram with Doppler and color Doppler. Other Information Quality : FairHR: 84bpm Rhythm : NSR INDICATION COPD Congenital Heart Disease RISK FACTORS Hypertension Obesity 2D DIMENSIONS RVDd3.6 (2.9-3.5cm)Left Atrium(2D)5.0 (1.6-4.0cm) IVSd1.5 (0.7-1.1cm)Aortic Root(2D)3.7 (2.0-3.7cm) LVDd5.7 (3.9-5.9cm)LVOT Diameter2.3 (1.8-2.4cm) PWd1.4 (0.7-1.1cm)LVDs3.9 (2.5-4.0cm) FS (%) 31.9 %SV94.9 ml LVEF(%)59.2 (>50%) Aortic Valve AoV Peak Omkar.147.4cm/sAoV VTI29.3cm AO Peak GR.8.7mmHgLVOT Peak Omkar.130.9cm/s AO Mean GR.4mmHgAVA (VMAX)3.61cm2 Mitral Valve MV E Xvdphsly164.7cm/sMV DECEL LXCY896va MV A Vmssvsdy727.4cm/sE/A Ratio1.1 LEFT VENTRICLE The Left Ventricle is mildly dilated. There is borderline to mild concentric left ventricular hypertr ophy. The left ventricular systolic function is mildly impaired. Estimated ejection fraction 45%. Th ere is global hypokinesis of the left ventricle. Transmitral Doppler flow pattern is Grade II-pseudon ormal filling dynamics. RIGHT VENTRICLE The right ventricle is normal size. There is normal right ventricular wall thickness. The right ventr icular systolic function is normal. ATRIA The left atrium size is normal. The right atrium size is normal. The interatrial septum is intact wit h no evidence for an atrial septal defect or patent foramen ovale as noted on 2-D or Doppler imaging. AORTIC VALVE The aortic valve is normal in structure and function. Doppler and Color Flow revealed no significant aortic regurgitation. There is no significant aortic valvular stenosis. MITRAL VALVE The mitral valve is normal in structure and function. There is no evidence of mitral valve prolapse. There is no mitral valve stenosis. Doppler and Color-flow revealed mild mitral regurgitation. TRICUSPID VALVE The tricuspid valve is normal in structure and function. Doppler and Color Flow revealed no tricuspid valve regurgitation noted. There is no tricuspid valve stenosis. GREAT VESSELS The aortic root is mildly enlarged. The IVC is normal in size and collapses >50% with inspiration. PERICARDIAL EFFUSION There is no evidence of significant pericardial effusion. Critical Notification Critical Value: No <Conclusion> The left ventricular systolic function is mildly impaired. Estimated ejection fraction 45%. Transmitral Doppler flow pattern is Grade II-pseudonormal filling dynamics. Doppler and Color-flow revealed mild mitral regurgitation. There is no evidence of significant pericardial effusion. Signed by : Cesar Hein, Electronically Approved : 07/01/2020 14:19:35
[2020-07-01 15:00] VITALS: BP 133/66
[2020-07-01] MEDS: cefTRIAXone IV Push 1 GM VIAL. IVP SCH (15:26)
[2020-07-01 19:00] VITALS: BP 169/83
[2020-07-01] MEDS: LACTOBACILLUS RHAMNOSUS GG 1 CAPSULE. PO SCH (22:07)
[2020-07-01] MEDS: ENOXAPARIN 40 MG/0.4 ML SYRINGE. SQ SCH (22:07)
[2020-07-01] MEDS: guaiFENesin/CODEINE 100mg/10mg 5 ML LIQUID PO PRN (22:07)
[2020-07-01] MEDS: ATORVASTATIN CALCIUM 10 MG TABLET. PO SCH (22:08)
[2020-07-01] MEDS: AMITRIPTYLINE HCL 10 MG TABLET. PO SCH (22:08)
[2020-07-01 23:00] VITALS: BP 155/86
[2020-07-02 03:00] VITALS: BP 159/82
[2020-07-02 07:00] VITALS: BP 140/80
[2020-07-02] MEDS: ALBUTEROL SULFATE 2.5 MG/3 ML NEBU. NEB SCH ×2 (07:27→11:06)
[2020-07-02] MEDS: AZITHROMYCIN 250 MG TABLET. PO SCH (08:36)
[2020-07-02] MEDS: LACTOBACILLUS RHAMNOSUS GG 1 CAPSULE. PO SCH (08:36)
[2020-07-02] MEDS: GABAPENTIN 300 MG CAPSULE. PO SCH ×2 (08:37→13:01)
[2020-07-02] MEDS: LISINOPRIL 20 MG TABLET PO SCH (08:37)
[2020-07-02] MEDS ORDERED: predniSONE 20 MG TABLET PO SCH (09:00)
--- NOTE | 2020-07-02 09:23 | PDOC ---
PULMONARY PROGRESS NOTES DATE: 07/02/20 TIME: 09:21 Subjective feels better wants to go home Vitals Vital Signs Date Time Temp Pulse Resp B/P (MAP) Pulse Ox O2 Delivery O2 Flow Rate FiO2 07/02/20 08:37 85 140/80 07/02/20 07:27 96 Nasal Cannula 3.0 07/02/20 07:00 98.0 18 98.0 General: Alert, No acute distress Lungs: Other (decrease bs) Cardiovascular: S1 Abdomen: Soft Neuro Exam: Alert Extremities: Other (1+edema) Impression . 1. Acute hypoxic respiratory failure, likely secondary to congestive heart failure. This is a patient who also has 40 years of tobacco use and underlying chronic obstructive pulmonary disease would be another contributing factor. 2. Abnormal chest x-ray with bilateral diffuse interstitial infiltrates favoring congestive heart failure. 3. 40 years of tobacco use, suspect underlying chronic obstructive pulmonary disease. 4. Underlying obesity. Need to rule out obstructive sleep apnea. Plan . 1. continue diuresis. 2. Wean oxygen to keep saturation 92 and above. 6 min walk today 3. Follow up chest x-ray post-diuresis.today 4. PFTs as an outpatient. 5. Smoking cessation counseling provided. 6. echocardiogram. 7. Likely discharge today 8. Discussed with Dr. Cid. MARYANNE NEAL MD Jul 02, 2020 09:23
--- NOTE | 2020-07-02 10:46 | RAD ---
EXAM: XR CHEST 1V INDICATION: Reason: CHF / Spl. Instructions: / History: . TECHNIQUE: Single view COMPARISON: Chest x-ray 06/29/2020 FINDINGS: The heart size is upper normal in size. The great vessels show mild enlargement of the pulmonary arteries, similar to prior. The thoracic aor ta is calcified and tortuous. There is no hilar or mediastinal mass. There has been slight interval improvement in diffuse coarse interstitial markings, not fully resolve d. No pneumothorax. There is improvement in the hazy opacity of the left lung base suggesting a small le ft pleural effusion. There are no significant osseous abnormalities. IMPRESSION: Improving findings of CHF Electronically signed by: Zana Daniel MD (07/02/2020 10:43 AM) [id number]
--- NOTE | 2020-07-02 10:50 | PDOC ---
CARDIO Progress Notes Date and Time Date of Service 07/02/20 Time of Evaluation 1046 Subjective Subjective: No Chest Pain, Other (SOA better ) Vitals Vitals Vital Signs Date Time Temp Pulse Resp B/P (MAP) Pulse Ox O2 Delivery O2 Flow Rate FiO2 07/02/20 08:37 85 140/80 07/02/20 07:27 96 Nasal Cannula 3.0 07/02/20 07:00 98.0 18 98.0 Weight Weight [ ] Input and Output Intake and Output Intake and Output 07/02/20 07:00 Intake Total 480 ml Balance 480 ml Intake Oral 480 ml # Voids 1 Physical Exam HEENT: Neck Supple W Full Motion Chest: Symmetric LUNGS: Other (diminished ) Heart: S1S2, RRR Abdomen: Soft N/T Extremities: Other (trace bilateral LE edema ) Neurology: alert, oriented, follow commands Assessment Assessment 1. Acute respiratory failure secondary to a/c CHF 2. Acute on chronic systolic CHF; echo with LVEF 45%. 3. Accelerated hypertension; now controlled 4. Hyperlipidemia; statin 5. COPD with ongoing tobaccoism; discussed/encouraged cessation 6. PUI; COVID negative Recommendations Will give additional dose of Lasix Repeat labs Discontinue Cardizem Start Toprol for HF optimization Continue lisinopril Add ASA. check lipids Plan outpatient ischemic evaluation as arranged Follow up with Dr. Price has been scheduled Justicifation of Admission Dx: Justifications for Admission: Justification of Admission Dx: Yes (hypoxia) ABUNDIO RON APRN Jul 02, 2020 10:49
[2020-07-02 11:00] VITALS: BP 131/78
--- NOTE | 2020-07-02 11:04 | NUR ---
SW following for discharge planning. Spoke with RN and reviewed chart. Discharge plan remains home with daughter. Pt will likely need a 6 min walk prior to discharge. SW following. Addendum: 07/02/20 at 1615 by JT SANDOVAL SW Pt to discharge home today, self-care. 6 min walk done and pt does need home 02 setup. Met with pt. Pt stated no preference in 02 provider. Pt choice of vendor form completed. Clinicals and orders faxed to Ronen at [facility]. SW confirmed orders received. Pt provided with 02 tank for transportation home. Pt verbalized understanding to call the number on the tank upon arrival home tonight for home 02 setup. No further SW needs at this time.
[2020-07-02 11:47] LABS: CALCIUM 8.8 mg/dL (8.5-10.1); CREATININE 0.8 mg/dL (0.6-1.0); GFR 70.7; MAGNESIUM 2.4 mg/dL (1.8-2.4); POTASSIUM 4.6 mmol/L (3.5-5.1)
[2020-07-02 12:00] LABS: CHOLESTEROL/HDL RATIO 1.6
[2020-07-02] MEDS ORDERED: ENOXAPARIN 40 MG/0.4 ML SYRINGE. SQ SCH (12:00)
[2020-07-02] MEDS ORDERED: METO50TA4 PO (12:26)
[2020-07-02] MEDS ORDERED: LISI-130 PO (12:26)
[2020-07-02] MEDS ORDERED: ASPI-886 PO (12:26)
[2020-07-02] MEDS ORDERED: ATOR10TA60 PO (12:26)
[2020-07-02] MEDS ORDERED: FURO-69 PO (12:28)
[2020-07-02] MEDS ORDERED: FUROSEMIDE 20 MG/2 ML VIAL. IVP ONE (12:30)
--- NOTE | 2020-07-02 12:34 | SNU/HH DC ---
DISCHARGE WITH HOME HEALTH DISCHARGE INFORMATION: Discharge Date: Jul 02, 2020 Final Diagnosis: 1. Acute hypoxic respiratory failure, likely secondary to congestive heart failure. 3. 40 years of tobacco use, suspect underlying chronic obstructive pulmonary disease. 4. obesity BMI 40 5. hyperlipids 6. hypertension negative for COVID Problems Medical Problems: (1) CHF (congestive heart failure) Status: Acute (2) Dyspnea Status: Acute (3) Elevated brain natriuretic peptide (BNP) level Status: Acute (4) Person under investigation for COVID-19 Status: Acute Condition on Discharge: Stable CODE STATUS: Code Status: Full HOME HEALTH: Face to Face: I certify this patient is under my care and that I had a face to face encounter that meets the physician face to face encounter requirements with this patient on 07/02/20 Medical Complications: CHF RN For Eval/Treatment: Yes Physical Therapy For: Evalulation/Treatment Occupational Therapy For: Evaluation/Treatment Pt Meets Homebound Status: Unsteady balance w/ amb,, Extreme weakness w/ amb., Other: (new hypoxia) POST DISCHARGE ORDERS: DIET AFTER DISCHARGE: Cardiac FOLLOW-UP: Follow up with: primary care Follow Up With: cardiology, Albert 2- 4 weeks TREATMENT/EQUIPMENT ORDERS: Adaptive Equipment Issued: None Discharge Respiratory Equipmen: Oxygen (2 liters at rest, 4 liters exertion) CERTIFICATION STATEMENT: Certification Statement: Certification Statement: Based on the above finding, I certify that this patient is confined to the home and needs intermittent halfway care, physical therapy and/or speech therapy, or continues to need occupational therapy.~ This patient is under my care, and I have initiated the establishment of the plan of care.~ This patient will be followed by myself or a community physician who will periodically review the plan of care. Home Meds Active Scripts Furosemide (LASIX) 20 Mg Tablet, 1 TAB PO DAILY for CHF for 30 Days, #30 TAB 0 Refills Prov:PATRICK LAUREANO MD 07/02/20 Aspirin (ASPIRIN EC) 81 Mg Tablet.dr, 81 MG PO DAILYWBKFT for cardiac, #100 TAB.SR Prov:PATRICK LAUREANO MD 07/02/20 Lisinopril (LISINOPRIL) 40 Mg Tablet, 40 MG PO DAILY for CHF, #30 TAB 1 Refill Prov:PATRICK LAUREANO MD 07/02/20 Metoprolol Succinate (Toprol XL) 50 Mg Tab.er.24h, 50 MG PO DAILY for CHF, #30 TAB.SR 1 Refill Prov:PATRICK LAUREANO MD 07/02/20 Atorvastatin Calcium (ATORVASTATIN CALCIUM) 10 Mg Tablet, 10 MG PO QHS for lipids, #30 TAB 1 Refill Prov:PATRICK LAUREANO MD 07/02/20 PATRICK LAUREANO MD Jul 02, 2020 12:34
--- NOTE | 2020-07-02 12:38 | PDOC3 ---
Discharge Summary Visit Information Date of Admission: Jun 30, 2020 Date of Discharge: Jul 02, 2020 Final Diagnosis acute hypoxia, negative for COVID -19, Acute systolic CHF, COPD, stable obese, BMI 38 hyperlipids hypertension Problems Medical Problems: (1) CHF (congestive heart failure) Status: Acute (2) Dyspnea Status: Acute (3) Elevated brain natriuretic peptide (BNP) level Status: Acute (4) Person under investigation for COVID-19 Status: Acute Brief Hospital Course Allergies Allergies Coded Allergies Type Severity Reaction Last Updated Verified No Known Drug Allergies 06/29/20 No Vital Signs Vital Signs Date Time Temp Pulse Resp B/P (MAP) Pulse Ox O2 Delivery O2 Flow Rate FiO2 07/02/20 11:06 98 Nasal Cannula 3.0 07/02/20 11:00 97.9 78 18 131/78 (95) 97.9 Lab Results Laboratory Tests Test 07/02/20 11:20 07/02/20 11:23 Triglycerides Level 71 mg/dL (0-150) Cholesterol Level 158 mg/dL (0-200) LDL Cholesterol, Calculated 48 mg/dL (0-100) VLDL Cholesterol, Calculated 14 mg/dL (0-40) Non-HDL Cholesterol Calculated 62 mg/dL (0-129) HDL Cholesterol 96 mg/dL (40-60) Cholesterol/HDL Ratio 1.6 Sodium Level 140 mmol/L (136-145) Potassium Level 4.6 mmol/L (3.5-5.1) Chloride Level 102 mmol/L (98-107) Carbon Dioxide Level 35 mmol/L (21-32) Anion Gap 3 (6-14) Blood Urea Nitrogen 30 mg/dL (7-20) Creatinine 0.8 mg/dL (0.6-1.0) Estimated GFR (Cockcroft-Gault) 70.7 Glucose Level 85 mg/dL (70-99) Calcium Level 8.8 mg/dL (8.5-10.1) Magnesium Level 2.4 mg/dL (1.8-2.4) Laboratory Tests Test 07/02/20 11:20 07/02/20 11:23 Triglycerides Level 71 mg/dL (0-150) Cholesterol Level 158 mg/dL (0-200) LDL Cholesterol, Calculated 48 mg/dL (0-100) VLDL Cholesterol, Calculated 14 mg/dL (0-40) Non-HDL Cholesterol Calculated 62 mg/dL (0-129) HDL Cholesterol 96 mg/dL (40-60) Cholesterol/HDL Ratio 1.6 Sodium Level 140 mmol/L (136-145) Potassium Level 4.6 mmol/L (3.5-5.1) Chloride Level 102 mmol/L (98-107) Carbon Dioxide Level 35 mmol/L (21-32) Anion Gap 3 (6-14) Blood Urea Nitrogen 30 mg/dL (7-20) Creatinine 0.8 mg/dL (0.6-1.0) Estimated GFR (Cockcroft-Gault) 70.7 Glucose Level 85 mg/dL (70-99) Calcium Level 8.8 mg/dL (8.5-10.1) Magnesium Level 2.4 mg/dL (1.8-2.4) Brief Hospital Course Ms. Dillard is a 70 old female, admit for acute dyspnea, hypoxia, req. 4 or 5 liters NC on admit to maintain Sa02, r.o for COVID, steroids and nebs and abx for COPD< but diureses helped, CXR consistent with CHF, CV consulted, meds started, hypoxia improved DC home health, Discharge Information Condition at Discharge: Improved Follow Up: Weeks Disposition/Orders: D/C to Home w/ HH Scheduled Aspirin (Aspirin Ec) 81 Mg Tablet.dr, 81 MG PO DAILYWBKFT for cardiac, #100 Prescribed by: PATRICK LAUREANO on 07/02/20 1226 Atorvastatin Calcium (Atorvastatin Calcium) 10 Mg Tablet, 10 MG PO QHS for lipids, #30 Ref 1 Prescribed by: PATRICK LAUREANO on 07/02/20 1226 Furosemide (Lasix) 20 Mg Tablet, 1 TAB PO DAILY for CHF for 30 Days, #30 Ref 0 Prescribed by: PATRICK LAURENAO on 07/02/20 1228 Lisinopril (Lisinopril) 40 Mg Tablet, 40 MG PO DAILY for CHF, #30 Ref 1 Prescribed by: PATRICK LAUREANO on 07/02/20 1226 Metoprolol Succinate (Toprol XL) 50 Mg Tab.er.24h, 50 MG PO DAILY for CHF, #30 Ref 1 Prescribed by: PATRICK LAUREANO on 07/02/20 1226 Patient Instructions Patient Instructions > 30 min face to face Justicifation of Admission Dx: Justifications for Admission: Justification of Admission Dx: Yes (hypoxia) PATRICK LAUREANO MD Jul 02, 2020 12:37
[2020-07-02 15:00] VITALS: BP 145/75
--- NOTE | 2020-07-02 17:34 | NUR ---
PATIENT DISCHARGED HOME W/ DAUGHTER. MEDS AND FOLLOW UP REVIEWED. PT PROVIDED W/ O2 TANK FROM CASE MANAGEMENT. IV REMOVED, CATH INTACT. PT STABLE UPON DC.
[2020-07-03] MEDS ORDERED: ASPIRIN ENTERIC COATED 81 MG TABLET.DR. PO SCH (08:00)
[2020-07-03] MEDS ORDERED: METOPROLOL SUCC 24HR ER 50 MG TAB.ER.24H. PO SCH (09:00)
== END 2020-07-02 15:00 | disposition home health service (06) | DRG 871 ==
LOC: ER 02:42 → ED HOLD 05:10 → 6 SOUTH 09:30 → OBSVTOIN 06-30 09:37
PROVIDERS: ADMIT Internal Medicine; ATTEND Internal Medicine
DX: A41.9 Sepsis, unspecified organism (principal); J18.9 Pneumonia, unspecified organism; J96.01 Acute respiratory failure with hypoxia; I50.23 Acute on chronic systolic (congestive) heart failure; J44.0 Chronic obstructive pulmonary disease with (acute) lower respiratory infection; Z68.41 Body mass index [BMI] 40.0-44.9, adult; Z20.822 Contact with and (suspected) exposure to COVID-19; I11.0 Hypertensive heart disease with heart failure; I50.9 Heart failure, unspecified; G62.9 Polyneuropathy, unspecified; E66.9 Obesity, unspecified; E78.00 Pure hypercholesterolemia, unspecified; E78.5 Hyperlipidemia, unspecified; F17.210 Nicotine dependence, cigarettes, uncomplicated; Z71.6 Tobacco abuse counseling
CPT/HCPCS: 36415; 71045; 80048; 80053; 80061; 83605; 83735; 83880; 84484; 85025; 93005; 93306; 94618; 94640; 94760; 96365; 96375; 99285; G0378; G0379; J0456; J0696; J1100; J1650; J1940; J2060; J2930; J7512; U0003; J7613

== ENCOUNTER → 2021-03-10 | Outpatient (CLI) | payer MEDICARE ==
[2020-07-18 09:38] VITALS: BP 131/55
[~2021-03-10] MED LIST: AMIT50TA PO; APIX5TAB PO; ASPI-886 PO; ATOR10TA60 PO; DIGO125T3 PO; DILT240C2 PO; FURO-69 PO; LISI-130 PO; METO100T5 PO; METO50TA4 PO; VENTOLIN HFA18 GM INH
--- NOTE | 2021-03-10 15:41 | PDOC1 ---
INITIAL PAIN CONSULT DATE OF SERVICE: DOS: DATE: 03/10/21 TIME: 15:30 CHIEF COMPLAINT: Chief Complaint: Low back and bilateral lower extremity pain Mid back and bilateral flank pain HISTORY OF PRESENT ILLNESS: 70-year-old female presents with history of pain in the low back bilateral lower extremities as well as the mid upper back and pain radiate to the bilateral flanks right essentially equal to left as well as the lower extremities in the thighs primarily as well as bilateral knee pain which has been going on for many years patient reports it started about 2019 is been severe in the knee she is seeing orthopedist at who was treating her with some knee joint injections of cortisone by her report which helped initially but then the last that she had about a year ago did not help at all. Patient reports she does not see a orthopedic surgeon currently for her knee pain. Patient reports that her knees are "livable" and her main complaint is her back pain worse with walking standing changing position especially getting up from seated position better with sitting or laying down generally does not awaken her from sleep most nights but can up to 3-5 times. Patient is taking amitriptyline to help her sleep which does decrease the amount of time she wakes up patient reports is not effective bowel bladder control does affect her ability to walk and she is using a cane which she has with her today and using in her left hand. Patient ports pain is throbbing and constant in the back with numbness and tingling in the mid back radiating into the bilateral lower extremities mostly the posterior gluteus also the lateral thighs anterior thighs medial thighs right side is equal to left once again to the knees themselves. Patient not had any recent diagnostic studies no x-rays no MRIs has not had any recent physical therapy she did about 2019 has been doing some home exercises by herself so she reports. Patient is taking Advil as well as Tylenol and Tylenol extra strength none of which are decreasing the pain. Patient rates her disability rating 0-10 10 being worst is a 10 with family home responsibilities recreation social activity occupation self-care and life support activities. PAST MEDICAL HISTORY: PMH: COPD, irregular heart rate, atrial fibrillation, questionable stroke, arthritis, cigarette smoking PREVIOUS SURGERIES: Past Surgical Hx: Bilateral cataract extractions, tonsillectomy CURRENT MEDICATIONS: Current Meds: Active Scripts Medications Dose Route/Sig Max Daily Dose Days Date Category Ventolin Hfa Inhaler (Albuterol Sulfate) 18 Gm Hfa.aer.ad 2 Puff INH Q4HRS 03/10/21 Reported Amitriptyline Hcl 50 Mg Tablet 1 Tab PO QHS 03/10/21 Reported Eliquis (Apixaban) 5 Mg Tablet 5 Mg PO DAILY 03/10/21 Reported Cardizem Cd (Diltiazem Hcl) 240 Mg Cap.er.24h 1 Cap PO DAILY 30 07/18/20 Rx Digoxin 125 Mcg Tablet 125 Mcg PO DAILY 30 07/18/20 Rx Lasix (Furosemide) 20 Mg Tablet 1 Tab PO DAILY 30 07/02/20 Rx Aspirin Ec (Aspirin) 81 Mg Tablet.dr 81 Mg PO DAILYWBKFT 07/02/20 Rx Lisinopril 40 Mg Tablet 40 Mg PO DAILY 07/02/20 Rx Atorvastatin Calcium 10 Mg Tablet 10 Mg PO QHS 07/02/20 Rx ALLERGIES; Allergies: Coded Allergies: No Known Drug Allergies (Unverified , 06/29/20) FAMILY HISTORY: Family Hx: Cancer, heart disease SOCIAL HISTORY: Social Hx: Patient drinks alcohol about 2 drinks once a month on average still smokes less than half pack a day and has for 55 years does not use any illegal illicit or re creational drugs is has 1 child living at home with her and lives locally in [facility] REVIEW OF SYSTEMS: ROS: Positive for those items mentioned in history of present illness, all systems are reviewed, otherwise negative ,and are complete full and well-documented on patient's chart. PHYSICAL EXAM: VS: Blood pressure is 120/70 pulse 85 respirations 18 temperature 90.4 F height is 5 feet 2 inches weight is 206 pounds PE: PHYSICAL EXAMINATION: GENERAL: The patient is awake, alert, oriented, appropriate, very pleasant in demeanor HEENT: Shows normocephalic, atraumatic. Extraocular movements are intact and symmetrical. Oral cavity: Mucous membranes moist and pink. NECK: Shows anterior throat supple without palpable lymphadenopathy noted. Swallow reflex symmetrical. CHEST: Shows normal on inspection. Breath sounds are clear bilaterally, distant but no rales or rhonchi auscultated. HEART: Shows S1, S2 clear. No murmurs auscultated. ABDOMEN: Soft, nontender, nondistended, obese. No palpable organomegaly is noted. BACK: Shows spine grossly in the midline. Normal-appearing cervical lordotic curvature. There is slightly increased thoracic kyphosis, some minor flattening of the lumbar lordotic curvature. Thoracic paraspinous muscles show symmetrical with inspection on palpation very firm tender to even moderate palpation in the mid and upper distribution of the thoracic paraspinous musculature bilaterally although symmetrical in appearance without specific trigger points but very firm musculature which is diffusely tender throughout without radiation on palpation. Lumbar paraspinous muscles show symmetrical on inspection, on palpation shows some moderate tenderness diffusely throughout the upper, middle and lower distribution of the paraspinous muscles bilaterally and also into the lower thoracic paraspinous musculature, firm and tender, but without specific trigger points, without radiation of pain. The patient has good rotational motion of the lumbar spine, and thoracic spine, both laterally as well as extension and flexion without significant difficulty. No tenderness over the spinous processes, sacrum or sacroiliac regions. EXTREMITIES: Lower extremities show deep tendon reflexes 1+ in the patellar and tendo calcaneus tendons. Motor exam is 5 on a scale of 5 with right dorsi flexion, extension, quadriceps and hamstring flexion and 5/5 on the left. Peripheral pulses are 1+ posterior tibial. No peripheral edema is noted bilaterally. Lower extremities are warm and dry to touch, equal in color and appearance. Straight leg raise noted to be negative bilaterally. Gaenslen's and Ryan's maneuvers are negative bilateral as well. The patient is able to stand but has difficulty getting up from a seated position and requires assistance from the arms of the chair as well as her cane, ambulates with a antalgic gait does not appear to favor the right or left lower extremity significantly and again has a cane she is using in her left hand. SKIN: Shows warm and dry, good turgor. No edema. No sores, rashes or bruising throughout. IMPRESSION: Impression: 70-year-old female with approximate 3-year history increasing pain low back and mid back with radiating pain into the right and left flank as well as right and left lower extremities and radicular fashion in the thoracic and lumbar distributions. Bilateral knee joint pain with osteoarthritis Irregular heart rhythm atrial fibrillation on anticoagulation therapy COPD Cigarette smoking Plan: Options were discussed with the patient including conservative medical management physical therapies interventional techniques. Patient would like to consider interventional techniques. First we will order MRI scans of both the thoracic and lumbar spine to better differentiate any pathology that may be responsible for the radicular component of her pain in these regions. Pending results of MRI scan we will proceed with plan once these images are obtained. In the meantime, patient will be given Medrol Dosepak with instructions side effects to be aware of. Patient continue with home stretching strength exercises as well. ARI BALDWIN MD Mar 10, 2021 15:41
== END | disposition home or self-care (01) ==
LOC: PNCL 14:14
PROVIDERS: ATTEND Anesthesiology
DX: M79.605 Pain in left leg (principal); M79.604 Pain in right leg; M54.50 Low back pain, unspecified; R10.9 Unspecified abdominal pain; J44.9 Chronic obstructive pulmonary disease, unspecified; I48.91 Unspecified atrial fibrillation; M19.90 Unspecified osteoarthritis, unspecified site; I50.9 Heart failure, unspecified; E78.00 Pure hypercholesterolemia, unspecified; Z86.73 Personal history of transient ischemic attack (TIA), and cerebral infarction without residual deficits; Z87.891 Personal history of nicotine dependence; Z79.82 Long term (current) use of aspirin; Z79.899 Other long term (current) drug therapy; Z98.890 Other specified postprocedural states
CPT/HCPCS: G0463